=== PATIENT | female | born 1965 | race Hispanic/Latino ===

== ENCOUNTER 2018-12-13 20:08 | Emergency (ER) | payer BC ==
[~2018-12-13] VITALS: Ht 165.1 cm; Wt 95.3 kg
[2018-12-13] MEDS ORDERED: KETOROLAC TROMETHAMINE 60 MG/2 ML VIAL IM ONE (20:45)
[2018-12-13] MEDS ORDERED: LIDOCAINE 5% PATCH TP SCH (20:45)
[2018-12-13] MEDS ORDERED: ROBAXIN-750750 MG PO (20:51)
[2018-12-13] MEDS ORDERED: ULTRAM50 MG PO (20:51)
--- NOTE | 2018-12-13 20:51 | Diagnostic Imaging Report ---
EXAMINATION: CHEST 2 VIEWS INDICATION: ^CHEST WALL PAIN ^[id number] ^2024 ^Y COMPARISON: None FINDINGS: PA and lateral views TUBES and LINES: None. LUNGS: Minimal left basilar atelectasis. No interstitial thickening. Punctate calcified granuloma in the right lower lobe. Pulmonary vascular markings are normal. PLEURA: Blunting of the left lateral costophrenic angle. HEART AND MEDIASTINUM: The cardiomediastinal silhouette is unremarkable. BONES AND SOFT TISSUES: No displaced fractures. Mild degenerative changes of the spine. No focal osseous lesions. Soft tissues are unremarkable. UPPER ABDOMEN: No free air under the diaphragm. IMPRESSION: Left basilar atelectasis, possibly with small pleural effusion. Signed by: Dr. Dwight Ernst MD on 12/13/2018 8:48 PM
[2018-12-13] MEDS ORDERED: LIDOCAINE 5% PATCH TP ONE (20:53)
[2018-12-13] MEDS ORDERED: KETOROLAC TROMETHAMINE 60 MG/2 ML VIAL ONE (20:53)
[2018-12-13 21:41] LABS: BASOPHILS % 0.3 % (0.0-1.0); EOSINOPHILS % 0.1 % (0.0-6.0); HEMATOCRIT 37.3 % (34.2-44.1); HEMOGLOBIN 12.7 g/dL (12.0-16.0); LYMPHOCYTES # (AUTO) 0.7 (1.0-3.2); LYMPHOCYTES % 6.4 % (18.0-39.1); MONOCYTES # (AUTO) 0.7 (0.2-0.8); MONOCYTES % 6.4 % (4.4-11.3); NEUTROPHILS # (AUTO) 9.6 (2.1-6.9); NEUTROPHILS % 86.3 % (38.7-80.0); PLATELET COUNT 234 x10e3/uL (140-360); RED CELL DISTRIBUTION WIDTH 12.4 % (11.7-14.4)
[2018-12-13 21:56] LABS: ALANINE AMINOTRANSFERASE 11 IU/L (0-55); ALBUMIN 3.6 g/dL (3.5-5.0); ALBUMIN/GLOBULIN RATIO 1.2 (0.8-2.0); ALKALINE PHOSPHATASE 138 IU/L (40-150); BLOOD UREA NITROGEN 18 mg/dL (7-26); BUN/CREATININE RATIO 16 (6-25); CALCIUM 9.5 mg/dL (8.4-10.2); CARBON DIOXIDE 24 mmol/L (22-29); CHLORIDE 97 mmol/L (98-107); CREATINE KINASE 36 IU/L (29-168); CREATININE, SERUM 1.15 mg/dL (0.57-1.11); EST GLOMERULAR FILTRATION RATE 50 ML/MIN (60-); SODIUM 131 mmol/L (136-145)
[2018-12-13 22:28] LABS: GLUCOSE 698 mg/dL (74-118)
[2018-12-13] MEDS ORDERED: SODIUM CHLORIDE 0.9% 1000ML 1,000 ML ONE (22:33)
[2018-12-13] MEDS ORDERED: INSULIN REGULAR, HUMAN 100 UNIT/1 ML 3ML VIAL ONE (22:33)
[2018-12-13] MEDS ORDERED: INSULIN REGULAR, HUMAN 100 UNIT/1 ML 3ML VIAL SQ STA (22:38)
[2018-12-13] MEDS ORDERED: INSULIN REGULAR, HUMAN 100 UNIT/1 ML 3ML VIAL IV STA (22:38)
[2018-12-13] MEDS ORDERED: SODIUM CHLORIDE 0.9% 1000ML 1,000 ML IV STA (22:38)
--- NOTE | 2018-12-13 22:42 | NUR ---
PT REPORTS NOT TAKING METFORMIN ROUTINELY AND ATE 2 PIECES OF PIE TODAY. AWARE
[2018-12-13] MEDS ORDERED: IOPAMIDOL 370 MG/ML 200 ML INFUS..BTL INJ ONE (23:15)
[2018-12-13] MEDS ORDERED: SODIUM CHLORIDE 0.9% 50ML 50 ML ONE (23:15)
--- NOTE | 2018-12-14 00:11 | Diagnostic Imaging Report ---
CT chest pulmonary embolism protocol CPT code: 71393 INDICATION: Left chest wall pain ^PE PROTOCOL ^[id number] ^2315 ^Y TECHNIQUE: Thin collimation axial images obtained through the level of the pulmonary arteries with additional imaging through the chest following the uneventful administration of 100 cc of low osmolar, nonionic intravenous contrast. Images reconstructed into coronal and sagittal MIPs for complete evaluation of the tortuous and overlapping pulmonary vascular structures and to reduce patient radiation dose. RADIATION DOSE: Total DLP: 509.44 mGy*cm Estimated effective dose: (DLP x 0.015 x size factor) mSv CTDIvol has been reviewed. It is below the limits set by the Radiation Protocol Committee (RPC). Dose reduction techniques used: Automated exposure control, adjustment of the mAs and/or kVp according to patient size, standardized low-dose protocol, and/or iterative reconstruction technique. COMPARISON: Chest x-ray 12/13/2018. FINDINGS: Pulmonary artery: No filling defects are appreciated within the main, left, right, lobar or visualized segmental pulmonary arteries to suggest embolism. Aorta: The thoracic aorta is not aneurysmal. No evidence for dissection. Lymph nodes: No enlarged axillary, supra clavicular, mediastinal, or hilar lymph nodes. Thyroid: Normal in size without mass in the visualized parenchyma.. Mediastinum: The heart is normal in size. Trace amount of fluid in the superior pericardial recess. The esophagus is normal. Lungs: Right Lung: Groundglass nodule in the anterolateral upper lobe measures 4 mm. There is mild lower lobe atelectasis. Left Lung: Focal airspace opacity in the posterior upper lobe abutting the major fissure. Patchy airspace opacities in the lingula and lower lobe. \ Pleura: Trace left pleural effusion. No right pleural effusion. No pleural based mass. Abdomen: Visualized portions are straight no abnormality. Bones: Degenerative changes of the spine. No focal osseous lesions. IMPRESSION: 1. No evidence of pulmonary embolus or aortic dissection. 2. Airspace opacities in the left lung are suggestive of infiltrates with associated atelectasis. Small left pleural effusion. 3. Trace right lower lobe atelectasis. Signed by: Dr. Dwight Ernst MD on 12/14/2018 12:08 AM
[2018-12-14 00:36] VITALS: BP 133/85
== END 2018-12-14 01:06 | disposition home or self-care (01) ==
LOC: ER 20:08
DX: R06.09 Other forms of dyspnea (principal); R09.1 Pleurisy; J90 Pleural effusion, not elsewhere classified
CPT/HCPCS: 36415; 71046; 71260; 80053; 82550; 82553; 82948; 83880; 84484; 84702; 85025; 93005; 99284; J1817; J1885; J7030; Q9967

== ENCOUNTER 2019-03-30 09:58 | Emergency (ER) | payer BC ==
[~2019-03-30] VITALS: Ht 165.1 cm; Wt 93.0 kg
[~2019-03-30 09:58] MED LIST: ROBAXIN-750750 MG PO; ULTRAM50 MG PO
--- OUTSIDE RECORDS SUMMARY | 2019-03-30 10:00 | XMS REPORT | Encounter Summary ---
Author Organization Unknown Address [address] [place] [id number] Phone [phone] Care Team Providers Care Powder Truck Driver Name Role Phone Dr. Mendez Wolf 3 [phone] Mendez Mathis MD 3 [phone] Justen Grimes OD 111 [phone] Reason for Visit Bilateral leg problem; other - see typed reason Instructions 1. Type II diabetes mellitus uncontrolled type 2 diabetes: care instructions Levemir FlexTouch U-100 Insulin 100 unit/mL (3 mL) subcutaneous pen HbA1c (hemoglobin A1c), blood microalbumin:creatinine ratio, urine 2. Hyperlipidemia high cholesterol: care instructions atorvastatin 40 mg tablet CMP, serum or plasma lipid panel, serum 3. Low back pain methocarbamol 750 mg tablet meloxicam 15 mg tablet ketorolac 60 mg/2 mL intramuscular solution 4. Body mass index 30+ - obesity body mass index: care instructions learning about healthy weight 5. Obesity starting a weight loss plan: care instructions dash diet: care instructions start aerobic exercise Discussion Note: None recorded. Plan of Care Reminders Provider Appointments Est Patient 01/11/2019 11:15AM Mendez Jasmine MD Lab CMP, Serum or Plasma 12/28/2018 [facility] Lipid Panel, Serum 12/28/2018 [facility] HbA1C (Hemoglobin a1C), Blood 12/28/2018 [facility] Microalbumin:creatinine Ratio, Urine 12/28/2018 [facility] Referral None recorded. Procedures None recorded. Surgeries None recorded. Imaging None recorded. Medications Name Start Date atorvastatin 40 mg tablet Take 1 tablet every day by oral route as directed for 90 days. BD Ultra-Fine Short Pen Needle 31 gauge x 5/16" use once daily bupropion HCl SR 150 mg tablet,12 hr sustained-release Take 1 tablet every day by oral route as directed. ketorolac 60 mg/2 mL intramuscular solution Inject 2 mL as needed by intramuscular route. Levemir FlexTouch U-100 Insulin 100 unit/mL (3 mL) subcutaneous pen Inject 50 units every day by subcutaneous route as directed for 30 days. meloxicam 15 mg tablet TAKE ONE TABLET BY MOUTH ONCE A DAY NEEDED WITH FOOD methocarbamol 750 mg tablet Take 1 tablet every 6-8 hours by oral route as needed for 14 days. mupirocin 2 % topical ointment 12/28/2018 tramadol 50 mg tablet Medications Administered Name Date ketorolac 60 mg/2 mL intramuscular solution Inject 2 mL as needed by intramuscular route. [id number]:10:00 Vitals Height Weight BMI Blood Pressure 5 ft 5 in 197.6 lbs 32.9 kg/m2 130/84 mm[Hg] Lab Results Date Name Specimen Result Interpretation Description Value Range Status Address 12/14/2018 Lab No observation recorded. [facility]: [address] [facility] Allergies Code Code System Name Reaction Severity Status Onset Penicillins Eye Swelling Mild to Moderate Active Problems Name Status Onset Date Source Diabetes Mellitus Active 06/03/2016 Hyperlipidemia Active 06/03/2016 Depressive Disorder Active 07/01/2016 Mixed Anxiety and Depressive Disorder Active 01/07/2017 Shoulder Joint Pain Active 01/07/2017 Procedures Date Name Performed by 06/12/2017 Other Information not available Vaccine List Vaccine Type Tdap 0.5 mL Social History Smoking Status Never Smoker Past Encounters 12/28/2018 Type II Diabetes Mellitus Uncontrolled; Hyperlipidemia; Low Back Pain; Body Mass Index 30+ - Obesity; Obesity Mendez Jasmine MD: [address] [place] [address], Ph. 12/14/2018 Chest Pain; Radiology Result Abnormal; Pleural Effusion; Diabetes Mellitus; Body Mass Index 30+ - Obesity; Morbid Obesity; Depressive Disorder; Immunization Refused; Screening for Malignant Neoplasm of Colon Mendez Jasmine MD: [address] [place] [address], Ph. History of Present Illness Note:F/u on dm: pt re-started using levemir. Glucose readings at home 189-400s 2 hrs postprandial. Not taking steglatro since a few months ago.<div>F/u on chest pain: resolved.</div><div>Low back pain since 2-3 weeks ago. Constant, sharp type.</div> Review of Systems Comprehensive General Adult ROS Reported By: Patient Constitutional: Constitutional: no fever Eyes: Eyes: no vision change ENMT: Ears: no ear pain. Nose: no sinus problems. Mouth/Throat: no sore throat Cardiovascular: Cardiovascular: no shortness of breath when walking, no shortness of breath when lying down, no palpitations, no lightheadedness; chest pain Respiratory: Respiratory: no cough, no wheezing, no shortness of breath Gastrointestinal: Gastrointestinal: no abdominal pain, no nausea, no vomiting, no constipation, no diarrhea Musculoskeletal: Musculoskeletal: back pain Integumentary: Skin: no rashes Neurologic: Neurologic: no loss of consciousness, no headaches Psychiatric: Psych: no depression, no alcohol abuse, no anxiety, no suicidal thoughts Endocrine: Endocrine: no fatigue Physical Exam General Adult Exam (male) Reported By: Patient Constitutional: General Appearance: healthy-appearing, obese. Level of Distress: NAD. Ambulation: ambulating normally Psychiatric: Insight: good judgement. Mental Status: active and alert, normal mood, normal affect. Orientation: to time, to place, to person. Memory: recent memory normal, remote memory normal Eyes: Lids and Conjunctivae: non-injected, no discharge. EOM: EOMI ENMT: Ears: TMs clear. Nose: no sinus tenderness. Lips, Teeth, and Gums: no mouth or lip ulcers. Oropharynx: moist mucous membranes Neck: Neck: supple, trachea midline. Thyroid: no enlargement, non-tender Lungs: Respiratory effort: no dyspnea. Percussion: ; tenderness with palpation in the left side of the chest. Auscultation: breath sounds normal Cardiovascular: Heart Auscultation: RRR, normal S1, normal S2, no murmurs. Neck vessels: no carotid bruits Abdomen: Inspection and Palpation: soft, non-distended, no tenderness, no guarding Musculoskeletal:: Motor Strength and Tone: normal, normal tone. Joints, Bones, and Muscles: normal movement of all extremities. Extremities: no edema Neurologic: Gait and Station: normal gait. Cranial Nerves: grossly intact. Coordination and Cerebellum: no tremor Back: Thoracolumbar Appearance: ; tenderness with palpation in the lumbar area. Normal ROM. Negative straight leg raising test bilaterally
--- OUTSIDE RECORDS SUMMARY | 2019-03-30 10:00 | XMS REPORT ---
Author Organization Unknown Address [address] [place] [address] Phone [phone] Care Team Providers Care Numerical Analysis Group Manager Name Role Phone Noah Mayberry Unavailable Unavailable Allergies Code Code System Name Reaction Severity Status Onset Penicillins Eye Swelling Mild to Moderate Active Medications Name Status Start Date Stop Date aspirin 81 mg tablet,delayed release Active Not available atorvastatin 40 mg tablet Active Not available azithromycin 250 mg tablet Completed 01/06/2017 Bactrim DS 800 mg-160 mg tablet Take 1 tablet every 12 hours by oral route for 10 days. Active Not available benzonatate 200 mg capsule Active Not available ovejiiamrwabobp-pcgsxrtjchbjrsx-PQ 2 mg-30 mg-10 mg/5 mL syrup Completed 07/01/2016 bupropion HCl SR 150 mg tablet,12 hr sustained-release Active Not available bupropion HCl XL 300 mg 24 hr tablet, extended release TAKE ONE TABLET BY MOUTH ONCE A DAY Completed 07/06/2016 ceftriaxone 1 gram solution for injection Take 1 g by injection route. Active Not available ceftriaxone 500 mg solution for injection Take 500 mg by injection route. Completed 02/03/2017 Cheratussin AC 10 mg-100 mg/5 mL oral liquid Take 10 mL every 6-8 hours by oral route. Completed 08/29/2017 clindamycin HCl 150 mg capsule Completed 02/01/2016 clindamycin HCl 300 mg capsule Completed 07/05/2017 dexamethasone 4 mg/mL injection solution Take 2 mL by injection route. Completed 08/29/2017 fluconazole 150 mg tablet Completed 06/03/2016 fluticasone 50 mcg/actuation nasal spray,suspension Active Not available glyburide 5 mg-metformin 500 mg tablet Active Not available Hydromet 5 mg-1.5 mg/5 mL syrup Completed 02/01/2016 Invokana 300 mg tablet TAKE 1 TABLET BY MOUTH DAILY Completed 07/10/2017 levocetirizine 5 mg tablet Active Not available levofloxacin 500 mg tablet Active Not available levofloxacin 750 mg tablet Active Not available Lincocin 300 mg/mL injection solution Take 1 mL by injection route. Completed 01/06/2017 meloxicam 15 mg tablet Active Not available methylprednisolone 4 mg tablets in a dose pack Completed 08/29/2017 metronidazole 500 mg tablet Active Not available mupirocin 2 % topical ointment Completed 02/03/2017 naproxen 500 mg tablet Completed 01/06/2017 ProAir HFA 90 mcg/actuation aerosol inhaler Active Not available simvastatin 40 mg tablet TAKE 1 TABLET BY MOUTH EVERY DAY Completed 06/14/2017 tramadol 50 mg tablet Take 1 tablet 3 times a day by oral route as needed. Active Not available Problems Name Status Onset Date Source Diabetes Mellitus Active 06/03/2016 Hyperlipidemia Active 06/03/2016 Depressive Disorder Active 07/01/2016 Mixed Anxiety and Depressive Disorder Active 01/07/2017 Shoulder Joint Pain Active 01/07/2017 Procedures Date Name Performed by 08/15/2016 MAMMO, Screening, Digital, Bilateral [facility] [place] [address] [place] [address] (Work Place) Notes: Patient indicated no previous surgeries on (08/29/2017) Lab Results Date Name Specimen Result Interpretation Description Value Range Status Address 01/06/2017 CMP, Serum or Plasma Alt 17 U/L 0-55 U/L Final [facility]: [address] Ast 12 U/L 5-34 U/L Final [facility]: [address] Bun 8.9 mg/dL 7.0-18.7 mg/dL Final [facility]: [address] Alk Phos 88 unit/L 40-150 unit/L Final [facility]: [address] High Glucose 331 mg/dL 70-99 mg/dL Final [facility]: [address] Albumin 3.7 g/dL 3.5-5.0 g/dL Final [facility]: [address] Creatinine 0.68 mg/dL 0.57-1.11 mg/dL Final [facility]: [address] eGFR Non- >60 mL/min/1.73m2 >60 mL/min/1.73m2 Final [facility]: [address], [place] Total Bilirubin 0.4 mg/dL 0.2-1.2 mg/dL Final [facility]: [address], [place] eGFR - >60 mL/min/1.73m2 >60 mL/min/1.73m2 Final [facility]: [address], [place] Sodium 138 mEq/L 136-145 mEq/L Final [facility]: [address] [place] [address], [place] Potassium 4.1 mEq/L 3.5-5.1 mEq/L Final [facility]: [address] [place] [address], [place] Chloride 103 mmol/L 98-107 mmol/L Final [facility]: [address], [place] Total Protein 6.7 g/dL 6.4-8.3 g/dL Final [facility]: [address] [facility] Calcium 9.6 mg/dL 8.4-10.2 mg/dL Final [facility]: [address], [place] Co2 27.5 mmol/L 22.0-29.0 mmol/L Final [facility]: [address] Anion Gap 8 calc Final [facility]: [address], [place] 01/06/2017 Lipid Panel, Serum Low Hdl 32 mg/dL 40-60 mg/dL Final [facility]: [address] High Triglyceride 174 mg/dL 0-149 mg/dL Final [facility]: [address] VLDL Calc. 35 mg/dL Final [facility]: [address] cholesterol/HDL Ratio 9 mg/dL Final [facility]: [address] [facility] High non-HDL Cholesterol Calc. 249 mg/dL 0-160 mg/dL Final [facility]: [address] High Cholesterol 281 mg/dL 0-199 mg/dL Final [facility]: [address] High LDL Calc. 214 mg/dL 0-130 mg/dL Final [facility]: [address] [place] [address] 01/06/2017 HbA1C (Hemoglobin a1C), Blood High A1C W/eag 14.1 % 1.0- 5.7 % Final [facility]: [address] Average Blood Glucose 358 mg/dL Final [facility]: [address] 08/15/2016 CMP, Serum or Plasma Alt 12 U/L 0-55 U/L Final [facility]: [address] Ast 13 U/L 5-34 U/L Final [facility]: [address] Bun 12 mg/dL 7-20 mg/dL Final [facility]: [address] Alk Phos 71 unit/L 40-150 unit/L Final [facility]: [address] High Glucose 121 mg/dL 70-99 mg/dL Final [facility]: [address] Albumin 4.0 g/dL 3.5-5.0 g/dL Final [facility]: [address] Creatinine 0.63 mg/dL 0.57-1.11 mg/dL Final [facility]: [address] eGFR Non- >60 mL/min/1.73m2 >60 mL/min/1.73m2 Final [facility]: [address] Total Bilirubin 0.4 mg/dL 0.2-1.2 mg/dL Final [facility]: [address] eGFR - >60 mL/min/1.73m2 >60 mL/min/1.73m2 Final [facility]: [address] Sodium 140 mEq/L 137-144 mEq/L Final [facility]: [address] Potassium 4.8 mEq/L 3.5-5.0 mEq/L Final [facility]: [address] Chloride 109 mmol/L 101-110 mmol/L Final [facility]: [address] Total Protein 6.7 g/dL 6.4-8.3 g/dL Final [facility]: [address] Calcium 9.3 mg/dL 8.4-10.2 mg/dL Final [facility]: [address] Co2 23.6 mmol/L 21.0-29.0 mmol/L Final [facility]: [address] Anion Gap 7 calc Final [facility]: [address] 08/15/2016 Lipid Panel, Serum Low Hdl 36 mg/dL 40-60 mg/dL Final [facility]: [address] Triglyceride 118 mg/dL 0-149 mg/dL Final [facility]: [address] VLDL Calc. 24 mg/dL Final [facility]: [address] cholesterol/HDL Ratio 6 mg/dL Final [facility]: [address] High non-HDL Cholesterol Calc. 177 mg/dL 0-160 mg/dL Final [facility]: [address] High Cholesterol 213 mg/dL 0-199 mg/dL Final [facility]: [address] High LDL Calc. 153 mg/dL 0-130 mg/dL Final [facility]: [address] 08/15/2016 HbA1C (Hemoglobin a1C), Blood High A1C W/eag 8.9 % 1.0-5.7 % Final [facility]: [address] Average Blood Glucose 209 mg/dL Final [facility]: [address] 07/01/2016 CBC W/ Auto Diff Wbc 5.7 x10*3/L 2.6-11.2 x10*3/L Final [facility]: [address] Rbc 4.73 10*12/L 3.93-5.87 10*12/L Final [facility]: [address] Hemoglobin 14.5 g/dL 10.7-15.7 g/dL Final [facility]: [address] Hematocrit 44.4 % 33.2-46.8 % Final [facility]: [address] [place] Mcv 93.9 fL 77.8-103.4 fL Final [facility]: [address] [place] Mch 30.7 pg 24.8-35.0 pg Final [facility]: [address] [place] Mchc 32.7 g/dL 31.5-35.9 g/dL Final [facility]: [address] [place] RDW-SD 42.3 fL 35.8-50.4 fL Final [facility]: [address] [place] Platelet Count 271.0 k/uL 126.7-416.1 k/uL Final [facility]: [address] [place] Mpv 10.5 fL 8.3-13.5 fL Final [facility]: [address] [place] Neut% 59.5 % 39.5-76.9 % Final [facility]: [address] [place] Lymph% 32.0 % 12.6-45.8 % Final [facility]: [address] [place] Mon% 7.2 % 3.7-12.9 % Final [facility]: [address] [place] Eos% 0.9 % 0.7-6.4 % Final [facility]: [address] [place] Baso% 0.4 % 0.1-1.5 % Final [facility]: [address] [place] Neut# 3.4 x10*3/L 0.6-7.6 x10*3/L Final [facility]: [address] [place] Lymph# 1.8 x10*3/L 0.7-3.3 x10*3/L Final [facility]: [address] [place] Mon# 0.4 x10*3/L 0.2-1.0 x10*3/L Final [facility]: [address] [place] Eos# 0.05 x10*3/L 0.04-0.44 x10*3/L Final [facility]: [address] Baso# 0.02 x10*3/L 0.01-0.08 x10*3/L Final [facility] [address] [facility] 07/01/2016 CMP, Serum or Plasma Alt 20 U/L 0-55 U/L Final [facility]: [address] Ast 17 U/L 5-34 U/L Final [facility]: [address] Bun 14 mg/dL 7-20 mg/dL Final [facility]: [address] Alk Phos 84 unit/L 40-150 unit/L Final [facility]: [address] High Glucose 118 mg/dL 70-99 mg/dL Final [facility]: [address] Albumin 4.1 g/dL 3.5-5.0 g/dL Final [facility]: [address] Creatinine 0.69 mg/dL 0.57-1.11 mg/dL Final [facility]: [address] eGFR Non- >60 mL/min/1.73m2 >60 mL/min/1.73m2 Final [facility]: [address] Total Bilirubin 0.5 mg/dL 0.2-1.2 mg/dL Final [facility]: [address] eGFR - >60 mL/min/1.73m2 >60 mL/min/1.73m2 Final [facility]: [address] Sodium 142 mEq/L 137-144 mEq/L Final [facility]: [address] Potassium 4.7 mEq/L 3.5-5.0 mEq/L Final [facility]: [address] Chloride 108 mmol/L 101-110 mmol/L Final [facility]: [address] Total Protein 6.8 g/dL 6.4-8.3 g/dL Final [facility]: [address] [address], [place] Calcium 9.7 mg/dL 8.4-10.2 mg/dL Final [facility]: [address] [place] [address], [place] Co2 23 mmol/L 21-29 mmol/L Final [facility]: [address] [place] [address], [place] Anion Gap 11 calc Final [facility]: [address] [place] [address], [place] 07/01/2016 Lipid Panel, Serum Low Hdl 32 mg/dL 40-60 mg/dL Final [facility]: [address] [place] [address], [place] High Triglyceride 158 mg/dL 0-149 mg/dL Final [facility]: [address] [place] [address], [place] VLDL Calc. 32 mg/dL Final [facility]: [address] cholesterol/HDL Ratio 6 mg/dL Final [facility]: [address] non-HDL Cholesterol Calc. 146 mg/dL 0-160 mg/dL Final [facility]: [address] Cholesterol 178 mg/dL 0-199 mg/dL Final [facility]: [address] [place] [address], [place] LDL Calc. 114 mg/dL 0-130 mg/dL Final [facility]: [address] [place] [address], [place] 07/01/2016 HbA1C (Hemoglobin a1C), Blood High A1C W/eag 10.8 % 1.0- 5.7 % Final [facility]: [address] Average Blood Glucose 263 mg/dL Final [facility]: [address] [place] [address], [place] 10/29/2015 CMP, Serum or Plasma No observation recorded. [facility]: [address], [place] 08/20/2015 CBC W/ Auto Diff No observation recorded. [facility]: [address], [place] Albumin:creatinine Ratio, Urine No observation recorded. [facility]: [address] [place] [address] Albumin:creatinine Ratio, Urine Type Urine Microlalbumin 10 mg/L [facility] [address], [place] Type Urine Creatinine 100 mg/dL [facility]: [address] [facility] [address], [place] Type A:C Ratio <30 mg/g (Normal) [facility]: [address] Past Encounters 08/29/2017 Cellulitis and Abscess of Face; Diabetes Mellitus; Hyperlipidemia Christina Hayes MD: [address], [address] [address], Ph. 07/10/2017 Acute Bronchitis Noah Mayberry MD: [facility] [place] [address], Ph. 07/05/2017 Acute Sinusitis; Renewal of Prescription Mendez Jasmine MD: [address] [place] [phone], Ph. 06/14/2017 Body Mass Index 30+ - Obesity; Gingival Abscess Noah Mayberry MD: [address] [place] [phone], Ph. 02/03/2017 Diabetes Mellitus; Hyperlipidemia; Body Mass Index 30+ - Obesity; Depressive Disorder; Shoulder Joint Pain Xenia Nielsen MD: [address] [place] [phone], Ph. 01/06/2017 Diabetes Mellitus; Hyperlipidemia; Body Mass Index 30+ - Obesity; Paronychia of Finger; Mixed Anxiety and Depressive Disorder Xenia Nielsen MD: [address] [place] [phone], Ph. 09/29/2016 Acute Bronchitis; Acute Sinusitis; Acute Pharyngitis Noah Mayberry MD: [address] [place] [phone], Ph. 08/15/2016 Hyperlipidemia; Diabetes Mellitus; Shoulder Joint Pain; Pain in Left Foot; Mixed Anxiety and Depressive Disorder; Screening for Malignant Neoplasm of Breast Xenia Nielsen MD: [address] [address], Ph. 07/01/2016 Shoulder Joint Pain; Pain in Left Foot; Diabetes Mellitus; Hyperlipidemia; Mixed Anxiety and Depressive Disorder Xenia Nielsen MD: [address], [facility] [address] [address], Ph. 06/03/2016 Acute Sinusitis Xenia Nielsen MD: [address], [facility] [address] [address], Ph. 02/18/2016 Shoulder Pain; Pain in Elbow; Type 2 Diabetes Mellitus without Complication Noah Mayberry MD: [address] [place] [address], Ph. 02/01/2016 Shoulder Strain; Strain of Muscle And/or Tendon of Elbow Region; Contusion of Knee; Candidiasis of Vagina Noah Mayberry MD: [address] [place] [address], Ph. Social History Smoking Status Never Smoker Vaccine List Notes: NONE 07/10/17 KG Plan of Care Patient Instructions rx bactrim Rocephin injection today rx tramadol up to 3x daily pain rec warm compress refer to DERM, rec eval for incision/drainage if not improving within 48 hrs on prescribed meds, f/u dentist Reminders Provider Appointments None recorded. Lab None recorded. Referral None recorded. Procedures None recorded. Surgeries None recorded. Imaging None recorded. Vitals 08/29/2017 11:30AM Est Patient Height Weight BMI Blood Pressure 5 ft 5.5 in 209.4 lbs 34.3 kg/m2 140/92 mm[Hg] 07/10/2017 02:00PM Est Patient Height Weight Blood Pressure 5 ft 5.5 in 124/72 mm[Hg] 07/05/2017 03:30PM Urgent Care Visit Height Weight BMI Blood Pressure 5 ft 5.5 in 215 lbs 35.2 kg/m2 138/74 mm[Hg] 06/14/2017 01:30PM Est Patient Height Weight BMI Blood Pressure 5 ft 5.5 in 225 lbs 36.9 kg/m2 120/84 mm[Hg] 02/03/2017 09:45AM Est Patient Height Weight BMI Blood Pressure 5 ft 5.5 in 224 lbs 36.7 kg/m2 110/88 mm[Hg] 01/06/2017 11:00AM Est Patient Height Weight BMI Blood Pressure 5 ft 5.5 in 227 lbs 37.2 kg/m2 (1) 150/82 mm[Hg] (2) 154/96 mm[Hg] 09/29/2016 02:15PM Est Patient Height Weight BMI Blood Pressure 5 ft 5.5 in 233 lbs 38.2 kg/m2 132/89 mm[Hg] 08/15/2016 09:45AM Est Patient Height Weight BMI Blood Pressure 5 ft 5.5 in 229 lbs 37.5 kg/m2 126/82 mm[Hg] 07/01/2016 10:30AM Est Patient Height Weight BMI Blood Pressure 5 ft 5.5 in 222.6 lbs 36.5 kg/m2 115/70 mm[Hg] 06/03/2016 09:30AM Est Patient Height Weight BMI Blood Pressure 5 ft 5.5 in 220 lbs 36.1 kg/m2 126/86 mm[Hg] 02/18/2016 01:45PM Est Patient Height Weight BMI Blood Pressure 5 ft 5.5 in 228 lbs 37.4 kg/m2 142/91 mm[Hg] 02/01/2016 04:30PM Est Patient Height Weight BMI Blood Pressure 5 ft 5.5 in 231 lbs 37.9 kg/m2 128/80 mm[Hg]
--- OUTSIDE RECORDS SUMMARY | 2019-03-30 10:00 | XMS REPORT ---
Author [facility] Address Unknown Phone Unavailable Care Team Providers Care Color Consultant Name Role Phone Michelle VELASQUEZ Unavailable Unavailable Problems This patient has no known problems. Allergies, Adverse Reactions, Alerts This patient has no known allergies or adverse reactions. Medications This patient has no known medications. Results Test Description Test Time Test Comments Text Results Atomic Results Result Comments CT CHEST W 2018-12-14 00:03:00 [place] [address] Patient Name: MINERVA CHASE MR #: [id number] : 1965 Age/Sex: 53/F Req #: [id number] [facility] Physician: Ordered by: PIYUSH VELASQUEZ MD Report #: [id number] Location: ER Room/Bed: Procedure: [id number] CT/CT CHEST W Exam Date: 12/13/18 Exam Time: 2314 REPORT STATUS: Signed CT chest pulmonary embolism protocol CPT code: 53516 INDICATION: Left chest wall pain PE PROTOCOL [id number] Y TECHNIQUE: Thin collimation axial images obtained through the level of the pulmonary arteries with additional imaging through the chest following the uneventful administration of 100 cc of low osmolar, nonionic intravenous contrast. Images reconstructed into coronal and sagittal MIPs for complete evaluation of the tortuous and overlapping pulmonary vascular structures and to reduce patient radiation dose. RADIATION DOSE: Total DLP: 509.44 mGy*cm Estimated effective dose: (DLP x 0.015 x size factor) mSv CTDIvol has been reviewed. It is below the limits set by the Radiation Protocol Committee (RPC). Dose reduction techniques used: Automated exposure control, adjustment of the mAs and/or kVp according to patient size, standardized low-dose protocol, and/or iterative reconstruction technique. COMPARISON: Chest x-ray 12/13/2018. FINDINGS: Pulmonary artery: No filling defects are appreciated within the main, left, right, lobar or visualized segmental pulmonary arteries to suggest embolism. Aorta: The thoracic aorta is not aneurysmal. No evidence for dissection. Lymph nodes: No enlarged axillary, supra clavicular, mediastinal, or hilar lymph nodes. Thyroid: Normal in size without mass in the visualized parenchyma.. Mediastinum: The heart is normal in size. Trace amount of fluid in the superior pericardial recess. The esophagus is normal. Lungs: Right Lung: Groundglass nodule in the anterolateral upper lobe measures 4 mm. There is mild lower lobe atelectasis. Left Lung: Focal airspace opacity in the posterior upper lobe abutting the major fissure. Patchy airspace opacities in the lingula and lower lobe. Pleura: Trace left pleural effusion. No right pleural effusion. No pleural based mass. Abdomen: Visualized portions are straight no abnormality. Bones: Degenerative changes of the spine. No focal osseous lesions. IMPRESSION: 1. No evidence of pulmonary embolus or aortic dissection. 2. Airspace opacities in the left lung are suggestive of infiltrates with associated atelectasis. Small left pleural effusion. 3. Trace right lower lobe atelectasis. Signed by: Dr. Tammi Ernst MD on 12/14/2018 12:08 AM Dictated By: TAMMI ERNST MD Transcribed By: KEELY on 12/14/187 COPY TO: PIYUSH VELASQUEZ MD CHEST 2 VIEWS 2018-12-13 20:47:00 [place] [address] Patient Name: MINERVA CHASE MR #: [id number] : 1965 Age/Sex: 53/F Req #: [id number] [facility] Physician: Ordered by: PIYUSH VELASQUEZ MD Report #: [id number] Location: ER Room/Bed: Procedure: [id number] DX/CHEST 2 VIEWS Exam Date: 12/13/18 Exam Time: 2024 REPORT STATUS: Signed EXAMINATION: CHEST 2 VIEWS INDICATION: CHEST WALL PAIN [id number] Y COMPARISON: None FINDINGS: PA and lateral views TUBES and LINES: None. LUNGS: Minimal left basilar atelectasis. No interstitial thickening. Punctate calcified granuloma in the right lower lobe. Pulmonary vascular markings are normal. PLEURA: Blunting of the left lateral costophrenic angle. HEART AND MEDIASTINUM: The cardiomediastinal silhouette is unremarkable. BONES AND SOFT TISSUES: No displaced fractures. Mild degenerative changes of the spine. No focal osseous lesions. Soft tissues are unremarkable. UPPER ABDOMEN: No free air under the diaphragm. IMPRESSION: Left basilar atelectasis, possibly with small pleural effusion. Signed by: Dr. Tammi Ernst MD on 12/13/2018 8:48 PM Dictated By: TAMMI ERNST MD 47 Transcribed By: KEELY on 12/13/182047 COPY TO: PIYUSH VELASQUEZ MD
--- OUTSIDE RECORDS SUMMARY | 2019-03-30 10:00 | XMS REPORT | Encounter Summary ---
Author Organization Unknown Address [address] [place] [address] Phone [phone] Care Team Providers Care Mechanical System Technician Name Role Phone Dr. Mendez Wolf 3 [phone] Mendez Mathis MD 3 [phone] Reason for Visit Hyperlipidemia; Diabetes mellitus; Mixed anxiety and depressive disorder; diabetic foot exam Instructions 1. Chest pain 2. Radiology result abnormal Zithromax Z-Mata 250 mg tablet 3. Pleural effusion head of music referral - Please call patient and schedule her an appointment. 4. Diabetes mellitus Steglatro 15 mg tablet Levemir FlexTouch U-100 Insulin 100 unit/mL (3 mL) subcutaneous pen 5. Body mass index 30+ - obesity body mass index: care instructions learning about healthy weight 6. Morbid obesity starting a weight loss plan: care instructions dash diet: care instructions body mass index: care instructions start aerobic exercise 7. Depressive disorder bupropion HCl SR 150 mg tablet,12 hr sustained-release 8. Immunization refused Adacel (Tdap Adolesn/Adult)(PF)2 Lf-(2.5-5-3-5)-5 Lf/0.5 mL IM syringe 9. Screening for malignant neoplasm of colon fecal occult blood, stool Discussion Note: None recorded. Plan of Care Reminders Provider Appointments Est Patient 12/28/2018 10:00AM Mendez Jasmine MD Lab Fecal Occult Blood, Stool 12/14/2018 [facility] Laboratory Referral Vehicle Delivery Worker Referral 12/14/2018 Keo Sauer MD Procedures None recorded. Surgeries None recorded. Imaging None recorded. Medications Name Start Date aspirin 81 mg tablet,delayed release Take 1 tablet every day by oral route. atorvastatin 40 mg tablet TAKE 1 TABLET BY MOUTH EVERY DAY AT BEDTIME (CALL FOR APPOINTMENT) BD Ultra-Fine Short Pen Needle 31 gauge x 5/16" bupropion HCl SR 150 mg tablet,12 hr sustained-release Take 1 tablet every day by oral route as directed. Levemir FlexTouch U-100 Insulin 100 unit/mL (3 mL) subcutaneous pen Inject 20 units every day by subcutaneous route for 30 days. mupirocin 2 % topical ointment Steglatro 15 mg tablet TAKE 1 TABLET BY MOUTH EVERY DAY tramadol 50 mg tablet Zithromax Z-Mata 250 mg tablet TAKE 2 TABLETS (500 MG) BY ORAL ROUTE ONCE DAILY FOR 1 DAY THEN 1 TABLET (250 MG) BY ORAL ROUTE ONCE DAILY FOR 4 DAYS Medications Administered None recorded. Vitals Height Weight BMI Blood Pressure 5 ft 5 in 211 lbs 35.1 kg/m2 140/78 mm[Hg] Lab Results None recorded. Allergies Code Code System Name Reaction Severity [...] History Smoking Status Never Smoker Past Encounters 12/14/2018 Chest Pain; Radiology Result Abnormal; Pleural Effusion; Diabetes Mellitus; Body Mass Index 30+ - Obesity; Morbid Obesity; Depressive Disorder; Immunization Refused; Screening for Malignant Neoplasm of Colon Mendez Jasmine MD: [address] [place] [address], Ph. History of Present Illness Note:Coming for f/u. Pt went to the ER yesterday due to acute onset pain in the left side of the chest. CT of the chest showed no evidence of pulmonary embolus or aortic dissection. It showed opacities in the left lung suggestive of infiltrates with atelectasis and small left pleural effusion.<div>Pain is very intense today 03/21. </div> Review of Systems Comprehensive General Adult ROS [...] nausea, no vomiting, no constipation, no diarrhea Integumentary: Skin: no rashes Neurologic: Neurologic: no loss of consciousness, no headaches Psychiatric: Psych: no depression, no alcohol abuse, no anxiety, no suicidal thoughts Endocrine: Endocrine: no fatigue Physical Exam General Adult Exam (male) Reported By: Patient Constitutional: General Appearance: healthy-appearing, obese. Level of Distress: moderate distress. Ambulation: ambulating normally Psychiatric: Insight: good judgement. [...] grossly intact. Coordination and Cerebellum: no tremor Skin: Inspection and palpation: no rash, no lesions
--- OUTSIDE RECORDS SUMMARY | 2019-03-30 10:01 | XMS REPORT | Encounter Summary ---
Author Organization Unknown Address [address] [place] [address] Phone [phone] Care Team Providers Care Retail Parts Professional Name Role Phone Dr. Mendez Wolf 3 [phone] Mendez Mathis MD 3 [phone] Justen Evert OD 111 [phone] Reason for Visit other - see typed reason; skin problem/rash Instructions 1. Pruritic rash triamcinolone acetonide 0.5 % topical ointment 2. Cough Tessalon Perles 100 mg capsule 3. Benign essential hypertension 4. Type II diabetes mellitus uncontrolled type 2 diabetes: care instructions blood glucose test strips lancets Discussion Note: None recorded. Plan of Care Reminders Provider Appointments Est Patient 03/29/2019 10:00AM Mendez Jasmine MD Lab None recorded. Referral None recorded. Procedures None recorded. Surgeries None recorded. Imaging None recorded. Medications Name Start Date atorvastatin 40 mg tablet Take 1 tablet every day by oral route as directed for 90 days. BD Ultra-Fine Short Pen Needle 31 gauge x 5/16" use once daily cetirizine 10 mg tablet Take 1 tablet every day by oral route as needed for 30 days. fluticasone propionate 50 mcg/actuation nasal spray,suspension [place] 1 spray twice a day by intranasal route as directed for 14 days. Levemir FlexTouch U-100 Insulin 100 unit/mL (3 mL) subcutaneous pen INJECT 50 UNITS UNDER THE SKIN EVERY DAY DIRECTED losartan 25 mg tablet Take 1 tablet every day by oral route as directed for 30 days. meloxicam 15 mg tablet TAKE ONE TABLET BY MOUTH ONCE A DAY NEEDED WITH FOOD methocarbamol 750 mg tablet Take 1 tablet every 6-8 hours by oral route as needed for 14 days. Tessalon Perles 100 mg capsule Take 1 capsule 3 times a day by oral route as needed for 10 days. triamcinolone acetonide 0.5 % topical ointment APPLY A THIN LAYER TO THE AFFECTED AREA(S) BY TOPICAL ROUTE 2 TIMES PER DAY FOR UP TO 2 WEEKS Medications Administered None recorded. Vitals Height Weight BMI Blood Pressure 5 ft 5 in 205 lbs 34.1 kg/m2 (1) 170/98 mm[Hg] (2) 162/82 mm[Hg] Lab Results Date Name Specimen Result Interpretation Description Value Range Status Address 12/28/2018 CMP, Serum or Plasma Alt 13 U/L 0-55 U/L Final [facility] Laboratory: [address] [place] [address], [place] Ast 10 U/L 5-34 U/L Final [facility]: [address] Low Bun 6.9 mg/dL 9.8-25.0 mg/dL Final [facility] Laboratory: [address] [place] [address], [place] Alk Phos 109 unit/L 40-150 unit/L Final [facility] Laboratory: [address] High Glucose 180 mg/dL 70-99 mg/dL Final [facility]: [address] Low Albumin 2.9 g/dL 3.4-5.1 g/dL Final [facility]: [address] Creatinine 0.63 mg/dL 0.57-1.11 mg/dL Final [facility]: [address] eGFR Non- >60 mL/min/1.73m2 Final [facility]: [address] Total Bilirubin 0.3 mg/dL 0.2-1.2 mg/dL Final [facility]: [address] eGFR - >60 mL/min/1.73m2 Final [facility]: [address] [place] [address], [place] Sodium 143 mEq/L 135-145 mEq/L Final [facility]: [address] Potassium 3.7 mEq/L 3.5-5.1 mEq/L Final [facility]: [address] Chloride 102 mmol/L 98-110 mmol/L Final [facility]: [address] Total Protein 6.5 g/dL 6.1-8.2 g/dL Final [facility]: [address] Calcium 9.6 mg/dL 8.6-10.4 mg/dL Final [facility]: [address] Co2 26.1 mmol/L 20.0-32.0 mmol/L Final [facility]: [address] Anion Gap 15 calc Final [facility]: [address] 12/28/2018 Lipid Panel, Serum Low Hdl 26 mg/dL Final [facility]: [address] High Triglyceride 171 mg/dL 0-150 mg/dL Final [facility]: [address] VLDL (Calculated) 34 mg/dL Final [facility]: [address] cholesterol/HDL Ratio 4.9 mg/dL Final [facility] [facility] [address] non-HDL Cholesterol (Calculated) 102 mg/dL 0-160 mg/dL Final [facility]: [address] Cholesterol 128 mg/dL 0-200 mg/dL Final [facility] Laboratory: [address] LDL (Calculated) 68 mg/dL 0-130 mg/dL Final [facility] Laboratory: [address] 12/28/2018 HbA1C (Hemoglobin a1C), Blood High A1C W/eag 14.0 % 1.0- 5.7 % Final [facility] Laboratory: [address] Average Blood Glucose 355 mg/dL Final [facility]: [address] 12/28/2018 Microalbumin:creatinine Ratio, Urine Microalbumin Random Urine 25 ug/mL Final [facility]: [address] Normal Creatinine Random Urine 77.2 mg/dL 20.0-320.0 mg/dL Final [facility]: [address] High Microalbumin/creatinine (Random Urine) Ratio Calculated 32 mcg/mg creat Final [facility] Laboratory: [address] Allergies Code Code System Name Reaction Severity Status Onset Penicillins Eye Swelling Mild to Moderate Active Problems Name Status Onset Date Source Diabetes Mellitus Active 06/03/2016 Hyperlipidemia Active 06/03/2016 Depressive Disorder Active 07/01/2016 Mixed Anxiety and Depressive Disorder Active 01/07/2017 Shoulder Joint Pain Active 01/07/2017 Procedures Date Name Performed by 06/12/2017 Other Information not available 01/11/2019 MAMMO, Screening, Digital, Bilateral [facility] [address] [place] [address] (Work Place) Vaccine List Vaccine Type pneumococcal polysaccharide PPV23 01/11/20190.5 mL Tdap 01/11/20190.5 mL 0.5 mL Social History Tobacco Smoking Status Never Smoker Past Encounters 01/25/2019 Pruritic Rash; Cough; Benign Essential Hypertension; Type II Diabetes Mellitus Uncontrolled Mendez Jasmine MD: [address] [place] [phone], Ph. 01/14/2019 Pruritic Rash; Cough; Upper Respiratory Infection Mendeztyrone Jasmine MD: [address] [place] [phone], Ph. 01/11/2019 Type II Diabetes Mellitus Uncontrolled; Hyperlipidemia; Benign Essential Hypertension; Allergic Rhinitis; Paronychia of Finger; Immunization; Screening for Malignant Neoplasm of Breast; Screening for Malignant Neoplasm of Cervix; Screening for Malignant Neoplasm of Colon; Low Back Pain Mendez Jasmine MD: [address] [place] [phone], Ph. 12/28/2018 Type II Diabetes Mellitus Uncontrolled; Hyperlipidemia; Low Back Pain; Body Mass Index 30+ - Obesity; Obesity Mendeztyrone Jasmine MD: [address] [place] [phone], Ph. History of Present Illness Note:F/u on htn, HLD, atopic dermatitis and cough.<div>Rash gets better with triamcinolone ointment. Needs a refill.</div>Cough has improved with tessalon capsules.
HTN: not checking BPs at home.<div>DM: glucose readings at home: 80-150s fasting. Postprandial 290s.
</div> Review of Systems:ROS as noted in the HPI Review of Systems Comprehensive General Adult ROS Reported By: Patient Constitutional: Constitutional: no fever Eyes: Eyes: no vision change ENMT: Ears: no ear pain. Nose: no sinus problems. Mouth/Throat: no sore throat Cardiovascular: Cardiovascular: no shortness of breath when walking, no shortness of breath when lying down, no palpitations, no lightheadedness Respiratory: Respiratory: no cough, no wheezing, no [...] EOM: EOMI ENMT: Ears: TMs clear. Nose: nares patent, no sinus tenderness, no nasal discharge. Lips, Teeth, and Gums: no mouth or lip ulcers. Oropharynx: moist mucous membranes, no erythema, no exudates, tonsils not enlarged Neck: Neck: supple, trachea midline. Lymph Nodes: no cervical LAD Lungs: Auscultation: breath sounds normal Cardiovascular: Heart Auscultation: RRR, normal S1, normal S2, no murmurs. Neck vessels: no carotid bruits Musculoskeletal:: Extremities: edema Neurologic: Gait and Station: normal gait Skin: Inspection and palpation: ; erythematous lesions in the legs with scaly skin
--- OUTSIDE RECORDS SUMMARY | 2019-03-30 10:01 | XMS REPORT | Encounter Summary ---
Author Organization Unknown Address [address] [place] [address] Phone [phone] Care Team Providers Care Concrete Foreman Name Role Phone Dr. Mendez Wolf 3 [phone] Mendez Mathis MD 3 [phone] Justen Loyd OD 111 [phone] Reason for Visit skin problem/rash; cough Instructions 1. Pruritic rash triamcinolone acetonide 0.5 % topical ointment 2. Cough losartan 25 mg tablet 3. Upper respiratory infection doxycycline monohydrate 100 mg tablet Discussion Note: None recorded. Patient educational handouts: No information available. Plan of Care Reminders Provider Appointments Est Patient 01/25/2019 11:00AM Mendez Jasmine MD Est Patient 02/08/2019 11:00AM Mendez Jasmine MD Lab None recorded. Referral [...] oral route as needed for 30 days. doxycycline monohydrate 100 mg tablet Take 1 tablet twice a day by oral route as directed for 10 days. fluticasone propionate 50 mcg/actuation nasal spray,suspension [place] 1 spray twice a day by intranasal route as directed for 14 days. Levemir FlexTouch U-100 Insulin 100 unit/mL (3 mL) subcutaneous pen Inject 50 units every day by subcutaneous route as directed for 30 days. lisinopril 5 mg tablet Take 1 tablet every day by oral route as directed for 30 days. losartan 25 mg tablet Take 1 tablet every day by oral route as directed for 30 days. meloxicam 15 mg tablet TAKE ONE TABLET BY MOUTH ONCE A DAY NEEDED WITH FOOD methocarbamol 750 mg tablet Take 1 tablet every 6-8 hours by oral route as needed for 14 days. triamcinolone acetonide 0.5 % topical ointment APPLY A THIN LAYER TO THE AFFECTED AREA(S) BY TOPICAL ROUTE 2 TIMES PER DAY FOR UP TO 2 WEEKS Medications Administered None recorded. Vitals Height Weight BMI Blood Pressure 5 ft 5 in 210.4 lbs 35 kg/m2 (1) 160/86 mm[Hg] (2) 162/86 mm[Hg] Lab Results Date Name Specimen Result Interpretation Description Value Range Status Address 12/28/2018 CMP, Serum or Plasma Alt 13 U/L 0-55 U/L Final [facility] Laboratory: [address] Ast 10 U/L 5-34 U/L Final [facility]: [address] Low Bun 6.9 mg/dL 9.8-25.0 mg/dL Final [facility]: [address] Alk Phos 109 unit/L 40-150 unit/L Final [facility]: [address] High Glucose 180 mg/dL 70-99 mg/dL Final [facility]: [address] Low Albumin 2.9 g/dL 3.4-5.1 g/dL Final [facility]: [address] Creatinine 0.63 mg/dL 0.57-1.11 mg/dL Final [facility]: [address] eGFR Non- >60 mL/min/1.73m2 Final [facility]: [address] Total Bilirubin 0.3 mg/dL 0.2-1.2 mg/dL Final [facility]: [address] eGFR - >60 mL/min/1.73m2 Final [facility]: [address] Sodium 143 mEq/L 135-145 mEq/L Final [facility]: [address] Potassium 3.7 mEq/L 3.5-5.1 mEq/L Final [facility]: [address] Chloride 102 mmol/L 98-110 mmol/L Final [facility]: [address] Total Protein 6.5 g/dL 6.1-8.2 g/dL Final [facility]: [address] Calcium 9.6 mg/dL 8.6-10.4 mg/dL Final [facility]: [address] Co2 26.1 mmol/L 20.0-32.0 mmol/L Final [facility]: [address] Anion Gap 15 calc Final [facility]: [address] 12/28/2018 Lipid Panel, Serum Low Hdl 26 mg/dL Final [facility] [address] High Triglyceride 171 mg/dL 0-150 mg/dL Final [facility]: [address] VLDL (Calculated) 34 mg/dL Final [facility] Laboratory: [address] [place] [address] cholesterol/HDL Ratio 4.9 mg/dL Final [facility]: [address] [place] [address] non-HDL Cholesterol (Calculated) 102 mg/dL 0-160 mg/dL Final [facility]: [address] Cholesterol 128 mg/dL 0-200 mg/dL Final [facility]: [address] LDL (Calculated) 68 mg/dL 0-130 mg/dL Final [facility]: [address] [place] [address] 12/28/2018 HbA1C (Hemoglobin a1C), Blood High A1C W/eag 14.0 % 1.0- 5.7 % Final [facility]: [address] Average Blood Glucose 355 mg/dL Final [facility]: [address] 12/28/2018 Microalbumin:creatinine Ratio, Urine Microalbumin Random Urine 25 ug/mL Final [facility]: [address] [place] [address] Normal Creatinine Random Urine 77.2 mg/dL 20.0-320.0 mg/dL Final [facility]: [address] [place] [address] High Microalbumin/creatinine (Random Urine) Ratio Calculated 32 mcg/mg creat Final [facility]: [address] [place] [address] 12/14/2018 Lab No observation recorded. [facility]: [address], [place] Allergies Code Code System Name Reaction Severity Status Onset Penicillins Eye Swelling Mild to Moderate Active Problems Name Status Onset Date Source Diabetes Mellitus Active 06/03/2016 Hyperlipidemia Active 06/03/2016 Depressive Disorder Active 07/01/2016 Mixed Anxiety and Depressive Disorder Active 01/07/2017 Shoulder Joint Pain Active 01/07/2017 Procedures Date Name Performed by 06/12/2017 Other Information not available 01/11/2019 MAMMO, Screening, Digital, Bilateral [facility] [address] [place] [address] (Work Place) Vaccine List Vaccine Type pneumococcal polysaccharide PPV23 01/11/20190.5 mL Tdap 01/11/20190.5 mL 0.5 mL Social History Tobacco Smoking Status Never Smoker Past Encounters 01/14/2019 Pruritic Rash; Cough; Upper Respiratory Infection Mendez Jasmine MD: [address] [place] [phone], Ph. 01/11/2019 Type II Diabetes Mellitus Uncontrolled; Hyperlipidemia; Benign Essential Hypertension; Allergic Rhinitis; Paronychia of Finger; Immunization; Screening for Malignant Neoplasm of Breast; Screening for Malignant Neoplasm of Cervix; Screening for Malignant Neoplasm of Colon; Low Back Pain Mendez Jasmine MD: [address] [place] [phone], Ph. 12/28/2018 Type II Diabetes Mellitus Uncontrolled; Hyperlipidemia; Low Back Pain; Body Mass Index 30+ - Obesity; Obesity Mendez Jasmine MD: [address] [place] [phone], Ph. 12/14/2018 Chest Pain; Radiology Result Abnormal; Pleural Effusion; Diabetes Mellitus; Body Mass Index 30+ - Obesity; Morbid Obesity; Depressive Disorder; Immunization Refused; Screening for Malignant Neoplasm of Colon Mendez Jasmine MD: [address] [place] [phone], Ph. History of Present Illness Note:Itchy erythematous rash in the legs since this morning. Not known triggers. <div>Productive cough and postnasal drainage since 5 days ago. Denies fever, sore throat, sob, wheezing or chest pain. </div> Review of Systems:ROS as noted in the HPI Review of Systems None recorded. Physical Exam General Adult Exam (male) Reported [...] ENMT: Ears: TMs clear. Nose: no sinus tenderness, nares non-patent, nasal discharge, post nasal drip. Lips, Teeth, and Gums: no mouth or lip ulcers. Oropharynx: moist mucous membranes, no exudates, tonsils not enlarged, erythema Neck: Neck: supple, trachea midline. Lymph Nodes: no cervical LAD Lungs: Auscultation: breath sounds normal Cardiovascular: Heart Auscultation: RRR, normal S1, normal S2, no murmurs. Neck vessels: no carotid bruits Musculoskeletal:: Extremities: edema Neurologic: Gait and Station: normal gait Skin: Inspection and palpation: ; erythematous lesions in the legs with scaly skin
--- OUTSIDE RECORDS SUMMARY | 2019-03-30 10:01 | XMS REPORT | Encounter Summary ---
Author Organization Unknown Address [address] [place] [address] Phone [phone] Care Team Providers Care Senior Accounting Manager Name Role Phone Dr. Mendez Wolf 3 [phone] Justen Evert OD 111 [phone] Reason for Visit Right low back pain; constipation Instructions 1. Constipation Linzess 145 mcg capsule 2. Low back pain meloxicam 15 mg tablet methocarbamol 750 mg tablet 3. Benign essential hypertension losartan 50 mg tablet 4. Type II diabetes mellitus uncontrolled Levemir FlexTouch U-100 Insulin 100 unit/mL (3 mL) subcutaneous pen type 2 diabetes: care instructions HbA1c (hemoglobin A1c), blood 5. Hyperlipidemia high cholesterol: care instructions lipid panel, serum CMP, serum or plasma 6. Allergic rhinitis fluticasone propionate 50 mcg/actuation nasal spray,suspension Discussion Note: None recorded. Plan of Care Reminders Provider Appointments None recorded. Lab Lipid Panel, Serum 03/27/[address] [facility] CMP, Serum or Plasma 03/27/[address] [facility] HbA1C (Hemoglobin a1C), Blood 03/27/[address] [facility] Referral None recorded. Procedures None recorded. Surgeries None recorded. Imaging None recorded. Medications Name Start Date atorvastatin 40 mg tablet Take 1 tablet every day by oral route as directed for 90 days. BD Ultra-Fine Short Pen Needle 31 gauge x 5/16" use once daily bupropion HCl SR 150 mg tablet,12 hr sustained-release TAKE 1 TABLET BY MOUTH EVERY DAY DIRECTED Levemir FlexTouch U-100 Insulin 100 unit/mL (3 mL) subcutaneous pen INJECT 50 UNITS UNDER THE SKIN EVERY DAY DIRECTED Linzess 145 mcg capsule Take 1 capsule every day by oral route as needed for 30 days. losartan 50 mg tablet Take 1 tablet every day by oral route as directed for 90 days. meloxicam 15 mg tablet TAKE ONE TABLET BY MOUTH ONCE A DAY NEEDED WITH FOOD 03/29/2019 methocarbamol 750 mg tablet Take 1 tablet every 8 hours by oral route as needed for 14 days. Prodigy No Coding strips Take 3 strips every day by miscell. route as needed. Prodigy Twist Top Lancet 28 gauge 3 TIMES A DAY triamcinolone acetonide 0.5 % topical ointment APPLY A THIN LAYER TO THE AFFECTED AREA(S) BY TOPICAL ROUTE 2 TIMES PER DAY FOR UP TO 2 WEEKS Medications Administered None recorded. Vitals Height Weight BMI Blood Pressure 5 ft 5 in 205 lbs 34.1 kg/m2 (1) 144/80 mm[Hg] (2) 140/86 mm[Hg] Results Lab Results Date Name Specimen Result Interpretation Description Value Range Status Address 03/27/2019 CMP, Serum or Plasma Alt 10 U/L 0-55 U/L Final [facility]: [address] [place] [address], [place] Ast 9 U/L 5-34 U/L Final [facility]: [address] Low Bun 8.7 mg/dL 9.8-25.0 mg/dL Final [facility]: [address] Alk Phos 107 unit/L 40-150 unit/L Final [facility]: [address] High Glucose 175 mg/dL 70-99 mg/dL Final [facility]: [address] Low Albumin 3.3 g/dL 3.4-5.1 g/dL Final [facility]: [address] Creatinine 0.70 mg/dL 0.57-1.11 mg/dL Final [facility]: [address] eGFR Non- >60 mL/min/1.73m2 Final [facility]: [address] Total Bilirubin 0.3 mg/dL 0.2-1.2 mg/dL Final [facility]: [address] eGFR - >60 mL/min/1.73m2 Final [facility]: [address] [place] [address], [place] Sodium 141 mEq/L 135-145 mEq/L Final [facility]: [address] Potassium 4.4 mEq/L 3.5-5.1 mEq/L Final [facility]: [address] [facility] [place] Chloride 104 mmol/L 98-110 mmol/L Final [facility]: [address] [facility], [place] Total Protein 7.7 g/dL 6.1-8.2 g/dL Final [facility]: [address] [place] Calcium 10.0 mg/dL 8.6-10.4 mg/dL Final [facility]: [address] [facility] [place] Co2 31.8 mmol/L 20.0-32.0 mmol/L Final [facility]: [address] [place] [address] [place] Anion Gap [address] [facility]: [address], [place] 03/27/2019 Lipid Panel, Serum Low Hdl 27 mg/dL Final [facility]: [address] [place] Triglyceride 127 mg/dL 0-150 mg/dL Final [facility]: [address] [facility] [place] VLDL (Calculated) 25 mg/dL Final [facility]: [address] [place] [address] cholesterol/HDL Ratio 5.0 mg/dL Final [facility]: [address] non-HDL Cholesterol (Calculated) 107 mg/dL 0-160 mg/dL Final [facility]: [address] [facility] [place] Cholesterol 134 mg/dL 0-200 mg/dL Final [facility]: [address] LDL (Calculated) 82 mg/dL 0-130 mg/dL Final [facility]: [address] [place] [address], [place] 03/27/2019 HbA1C (Hemoglobin a1C), Blood High A1C W/eag 10.0 % 1.0- 5.7 % Final [facility]: [address] Average Blood Glucose 240 mg/dL Final [facility]: [address] [place] [address], [place] Allergies Code Code System Name Reaction Severity Status Onset Penicillins Eye Swelling Mild to Moderate Active Problems Name Status Onset Date Source Diabetes Mellitus Active 06/03/2016 Hyperlipidemia Active 06/03/2016 Depressive Disorder Active 07/01/2016 Mixed Anxiety and Depressive Disorder Active 01/07/2017 Shoulder Joint Pain Active 01/07/2017 Constipation Active 03/29/2019 Procedures Date Name Performed by 06/12/2017 Other Information not available Vaccine List Vaccine Type pneumococcal polysaccharide PPV23 01/11/20190.5 mL Tdap 01/11/20190.5 mL 0.5 mL Social History Tobacco Smoking Status Never Smoker Past Encounters 03/29/2019 Screening for Malignant Neoplasm of Colon; Influenza Vaccination Declined Mendez Jasmine MD: [address] [place] [address], Ph. 03/27/2019 Constipation; Low Back Pain; Benign Essential Hypertension; Type II Diabetes Mellitus Uncontrolled; Hyperlipidemia; Allergic Rhinitis Mendez Jasmine MD: [address] [place] [address], Ph. History of Present Illness Note:Complaining of difficulty having bowel movements since 1 week ago.<div>Pain in the R side of the lumbar area, constant, triggered by lifting heaving we ight. Intensity:7/10. Radiated to the R leg. Denies numbness, tingling or weakne ss in the legs.</div><div>Glucose readings at home 70s-260s.</div> Review of Systems Comprehensive General Adult ROS Reported By: Patient Constitutional: Constitutional: no fever Eyes: Eyes: no vision change ENMT: Ears: no ear pain. Nose: no sinus problems. Mouth/Throat: no sore throat Cardiovascular: Cardiovascular: no chest pain, no palpitations, no lightheadedness Respiratory: Respiratory: no cough, no wheezing, no shortness of breath Gastrointestinal: Gastrointestinal: no abdominal pain, no nausea, no vomiting, no diarrhea, constipation Musculoskeletal: Musculoskeletal: no swelling in the extremities, muscle aches, back pain Neurologic: Neurologic: no loss of consciousness, no headaches Physical Exam General Adult Exam (male) Reported By: Patient Constitutional: General Appearance: healthy-appearing, obese. Level of Distress: NAD. Ambulation: ambulating normally Psychiatric: Insight: good judgement. Mental Status: active and alert, normal mood, normal affect. Orientation: to time, to place, to person. Memory: recent memory normal, remote memory normal Eyes: Lids and Conjunctivae: non-injected, no discharge ENMT: Ears: TMs clear. Nose: no sinus tenderness. Lips, Teeth, and Gums: no mouth or lip ulcers. Oropharynx: moist mucous membranes Neck: Neck: supple, trachea midline Lungs: Respiratory effort: no dyspnea. Auscultation: breath sounds normal Cardiovascular: Heart Auscultation: RRR, normal S1, normal S2, no murmurs Abdomen: Inspection and Palpation: soft, non-distended, no tenderness, no guarding Musculoskeletal:: Motor Strength and Tone: normal, normal tone. Joints, Bones, and Muscles: normal movement of all extremities. Extremities: no edema Neurologic: Gait and Station: normal gait Back: Thoracolumbar Appearance: ; tenderness with palpation in the lumbar area. Normal ROM. Negative straight leg raising test bilaterally
--- OUTSIDE RECORDS SUMMARY | 2019-03-30 10:01 | XMS REPORT | Encounter Summary ---
Author Organization Unknown Address [address] [place] [address] Phone [phone] Care Team Providers Care Tester Sound Name Role Phone Dr. Mendez Wolf 3 [phone] Mendez Mathis MD 3 [phone] Justen Pitt OD 111 [phone] Reason for Visit Bilateral leg problem; other [...] MD Lab CMP, Serum or Plasma 12/28/2018 [facility] Lipid Panel, Serum 12/28/2018 [facility] HbA1C (Hemoglobin a1C), Blood 12/28/2018 [facility] Microalbumin:creatinine Ratio, Urine 12/28/2018 [facility] Referral None recorded. Procedures [...] 2 mL as needed by intramuscular route. [id number]:10:00 Vitals Height Weight BMI Blood Pressure 5 ft 5 in 197.6 lbs 32.9 kg/m2 130/84 mm[Hg] Lab Results Date Name Specimen Result Interpretation Description Value Range Status Address 12/14/2018 Lab No observation recorded. [facility] [address] [facility] Allergies Code Code System Name Reaction Severity [...] - Obesity; Obesity Mendez Jasmine MD: [address] [place] [address], Ph. 12/14/2018 Chest Pain; Radiology Result Abnormal; Pleural Effusion; Diabetes Mellitus; Body Mass Index 30+ - Obesity; Morbid Obesity; Depressive Disorder; Immunization Refused; Screening for Malignant Neoplasm of Colon Mendez Jasmine MD: [address] [place] [address], Ph. History of Present Illness Note:F/u on [...] enlargement, non-tender Lungs: Respiratory effort: no dyspnea. Auscultation: breath [...]
--- OUTSIDE RECORDS SUMMARY | 2019-03-30 10:01 | XMS REPORT | Encounter Summary ---
Author Organization Unknown Address [address] [place] [address] Phone [phone] Care Team Providers Care Stain Applicator Name Role Phone Dr. Mendez Wolf 3 [phone] Mendez Mathis MD 3 [phone] Justen Evert OD 111 [phone] Reason for Visit Hyperlipidemia; Diabetes mellitus; Right low back pain Instructions 1. Type II diabetes mellitus uncontrolled type 2 diabetes: care instructions 2. Hyperlipidemia high cholesterol: care instructions 3. Benign essential hypertension lisinopril 5 mg tablet 4. Allergic rhinitis fluticasone propionate 50 mcg/actuation nasal spray,suspension cetirizine 10 mg tablet 5. Paronychia of finger mupirocin 2 % topical ointment 6. Immunization Pneumovax 23 25 mcg/0.5 mL injection syringe Adacel (Tdap Adolesn/Adult)(PF)2 Lf-(2.5-5-3-5)-5 Lf/0.5 mL IM syringe 7. Screening for malignant neoplasm of breast MAMMO, screening, digital, bilateral - *Please call the patient and schedule* 8. Screening for malignant neoplasm of cervix gynecology referral - *Please call the patient and make an appointment* PLEASE SEND BACK CONSULT NOTES TO [phone] 9. Screening for malignant neoplasm of colon 10. Low back pain physical therapy referral - *Please call the patient and schedule* Discussion Note: None recorded. Plan of Care Reminders Provider Appointments Est Patient 02/08/2019 11:00AM Mendez Jasmine MD Lab None recorded. Referral Gynecology Referral 01/11/2019 Dolores Figueroa MD Physical Therapy Referral 01/11/2019 [facility] ([place]) Procedures None recorded. Surgeries None recorded. Imaging MAMMO, Screening, Digital, Bilateral 01/11/2019 [facility] Medications Name Start Date atorvastatin 40 mg tablet Take 1 tablet every day by oral route as directed for 90 days. BD Ultra-Fine Short Pen Needle 31 gauge x 5/16" use once daily cetirizine 10 mg tablet Take 1 tablet every day by oral route as needed for 30 days. fluticasone propionate 50 mcg/actuation nasal spray,suspension [place] 1 spray twice a day by intranasal [...] 14 days. mupirocin 2 % topical ointment Apply 1 application every 8 hours by topical route as directed for 10 days. Medications Administered None recorded. Vitals Height Weight BMI Blood Pressure 5 ft 5 in 213 lbs 35.4 kg/m2 (1) 169/89 mm[Hg] (2) 165/89 mm[Hg] Lab Results Date Name Specimen Result Interpretation Description Value Range Status Address 12/28/2018 CMP, Serum or Plasma Alt 13 U/L 0-55 U/L Final [facility]: [address] Ast 10 U/L 5-34 U/L Final [facility]: [address] Low Bun 6.9 mg/dL 9.8-25.0 mg/dL Final [facility]: [address] Alk Phos 109 unit/L 40-150 unit/L Final [facility]: [address] High Glucose 180 mg/dL 70-99 mg/dL Final [facility]: [address] Low Albumin 2.9 g/dL 3.4-5.1 g/dL Final [facility]: [address] Creatinine 0.63 mg/dL 0.57-1.11 mg/dL Final [facility]: [address] eGFR Non- >60 mL/min/1.73m2 Final [facility]: [address] Total Bilirubin 0.3 mg/dL 0.2-1.2 mg/dL Final [facility]: [address] eGFR - >60 mL/min/1.73m2 Final [facility]: [address] [place] [address], [place] Sodium 143 mEq/L 135-145 mEq/L Final [facility]: [address] [place] [address], [place] Potassium 3.7 mEq/L 3.5-5.1 mEq/L Final [facility]: [address] [place] [address], [place] Chloride 102 mmol/L 98-110 mmol/L Final [facility]: [address] Total Protein 6.5 g/dL 6.1-8.2 g/dL Final [facility]: [address] Calcium 9.6 mg/dL 8.6-10.4 mg/dL Final [facility]: [address] Co2 26.1 mmol/L 20.0-32.0 mmol/L Final [facility]: [address] Anion Gap [address] [facility]: [address] [place] [address], [place] 12/28/2018 Lipid Panel, Serum Low Hdl 26 mg/dL Final [facility]: [address] High Triglyceride 171 mg/dL 0-150 mg/dL Final [facility]: [address] VLDL (Calculated) 34 mg/dL Final [facility]: [address] cholesterol/HDL Ratio 4.9 mg/dL Final [facility]: [address] non-HDL Cholesterol (Calculated) 102 mg/dL 0-160 mg/dL Final [facility]: [address] Cholesterol 128 mg/dL 0-200 mg/dL Final [facility]: [address] LDL (Calculated) 68 mg/dL 0-130 mg/dL Final [facility]: [address] [place] [address], [place] 12/28/2018 HbA1C (Hemoglobin a1C), Blood High A1C W/eag 14.0 % 1.0- 5.7 % Final [facility]: [address] [facility] [place] Average Blood Glucose 355 mg/dL Final [facility]: [address] [place] 12/28/2018 Microalbumin:creatinine Ratio, Urine Microalbumin Random Urine 25 ug/mL Final [facility]: [address] [facility] [place] Normal Creatinine Random Urine 77.2 mg/dL 20.0-320.0 mg/dL Final [facility]: [address] [facility] [place] High Microalbumin/creatinine (Random Urine) Ratio Calculated 32 mcg/mg creat Final [facility]: [address] [facility] Lab No observation recorded. [facility]: [address] [place] Allergies Code Code System Name Reaction Severity Status Onset Penicillins Eye Swelling Mild to Moderate Active Problems Name Status Onset Date Source Diabetes Mellitus Active 06/03/2016 Hyperlipidemia Active 06/03/2016 Depressive Disorder Active 07/01/2016 Mixed Anxiety and Depressive Disorder Active 01/07/2017 Shoulder Joint Pain Active 01/07/2017 Procedures Date Name Performed by 06/12/2017 Other Information not available 01/11/2019 MAMMO, Screening, Digital, Bilateral [facility] [address] [facility] [address] [place] [address] (Work [address]) Vaccine List Vaccine Type pneumococcal polysaccharide PPV23 01/11/20190.5 mL Tdap 01/11/20190.5 mL 0.5 mL Social History Tobacco Smoking Status Never Smoker Past Encounters 01/11/2019 Type II Diabetes Mellitus Uncontrolled; Hyperlipidemia; Benign Essential Hypertension; Allergic Rhinitis; Paronychia of Finger; Immunization; Screening for Malignant Neoplasm of Breast; Screening for Malignant Neoplasm of Cervix; Screening for Malignant Neoplasm of Colon; Low Back Pain Mendez Jasmine MD: [address] [place] [address], Ph. 12/28/2018 Type II Diabetes Mellitus Uncontrolled; Hyperlipidemia; Low Back Pain; Body Mass Index 30+ - Obesity; Obesity Mendez Jasmine MD: [address] [place] [address], Ph. 12/14/2018 Chest Pain; Radiology Result Abnormal; Pleural Effusion; Diabetes Mellitus; Body Mass Index 30+ - Obesity; Morbid Obesity; Depressive Disorder; Immunization Refused; Screening for Malignant Neoplasm of Colon Mendez Jasmine MD: [address] [place] [address], Ph. History of Present Illness Note:F/u on dm. Glucose readings at home 65-345 fasting. Postprandial 2 hrs: 200s-300s.<div>No side effects with insulin or atorvastatin. </div> Review of Systems Comprehensive General Adult [...]
--- OUTSIDE RECORDS SUMMARY | 2019-03-30 10:01 | XMS REPORT | Encounter Summary ---
Author Organization Unknown Address [address] [place] [address] Phone [phone] Care Team Providers Care Correctional Manager Name Role Phone Dr. Mendez Wolf 3 [phone] Mendez Mathis MD 3 [phone] Justen Ziebach OD 111 [phone] Reason for Visit Bilateral leg problem; other [...] MD Lab CMP, Serum or Plasma 12/28/2018 [facility] Lipid Panel, Serum 12/28/2018 [facility] HbA1C (Hemoglobin a1C), Blood 12/28/2018 [facility] Microalbumin:creatinine Ratio, Urine 12/28/2018 [facility] Referral None recorded. Procedures None recorded. [...] 2 mL as needed by intramuscular route. [id number]:10:00 Vitals Height Weight BMI Blood Pressure 5 ft 5 in 197.6 lbs 32.9 kg/m2 130/84 mm[Hg] Lab Results Date Name Specimen Result Interpretation Description Value Range Status Address 12/14/2018 Lab No observation recorded. [facility] [address] [facility] Allergies Code Code System Name Reaction Severity [...] - Obesity; Obesity Mendez Jasmine MD: [address] [place] [address], Ph. 12/14/2018 Chest Pain; Radiology Result Abnormal; Pleural Effusion; Diabetes Mellitus; Body Mass Index 30+ - Obesity; Morbid Obesity; Depressive Disorder; Immunization Refused; Screening for Malignant Neoplasm of Colon Mendez Jasmine MD: [address] [place] [address], Ph. History of Present Illness Note:F/u on [...]
--- NOTE | 2019-03-30 11:05 | Diagnostic Imaging Report ---
Exam:Acute abdominal series History:Constipation Comparison: None available Findings:Nonobstructive bowel gas pattern. Air filled loops of colon. Retained stool in the right hemicolon. No free air. Clear chest. Impression: Retained stool in the right hemicolon. No obstruction. Signed by: Dr. Fadi Wise M.D. on 03/30/2019 11:01 AM
[2019-04-04] MEDS ORDERED: LIDOCAINE1 EACH TOP (14:12)
[2019-04-04] MEDS ORDERED: LEVEMIR100 UNIT/1 SQ (14:12)
[2019-04-04] MEDS ORDERED: MELOXICAM15 MG PO (14:12)
[2019-04-04] MEDS ORDERED: TUMS200 MG PO (14:12)
== END 2019-03-30 12:00 | disposition home or self-care (01) ==
LOC: ER 09:58
DX: K59.00 Constipation, unspecified (principal); I10 Essential (primary) hypertension; E11.9 Type 2 diabetes mellitus without complications; E78.5 Hyperlipidemia, unspecified; F32.9 Major depressive disorder, single episode, unspecified; Z82.49 Family history of ischemic heart disease and other diseases of the circulatory system
CPT/HCPCS: 74022; 81025; 99284

== ENCOUNTER → 2019-04-06 | Day surgery (SDC) | payer BC ==
[~2019-04-06] MED LIST changes: +FENTANYL CITRATE/PF 100MCG/2 ML INJ ONE; +HYOSCYAMINE 0.125 MG TAB ONE; +LEVEMIR100 UNIT/1 SQ; +LIDOCAINE1 EACH TOP; +MELOXICAM15 MG PO; +MIDAZOLAM HCL 2 MG/2 ML VIAL ONE; +PROPOFOL IV EMULSION 10 MG/ML 20 ML VIAL ONE; +TUMS200 MG PO
--- OUTSIDE RECORDS SUMMARY | 2019-04-06 14:22 | XMS REPORT | Encounter Summary ---
Author Organization Unknown Address [address] [place] [address] Phone [phone] Care Team Providers Care Crowning Hammer Operator Name Role Phone Dr. Mendez Wolf 3 [phone] Justen Evert OD 111 [phone] Reason for Visit Constipation; abdominal pain; lab follow-up Instructions 1. Low back pain ketorolac 60 mg/2 mL intramuscular solution XR, lumbar spine - PLEASE CALL PATIENT TO SCHEDULE APPT Voltaren 1 % topical gel lidocaine 5 % topical patch tramadol 50 mg tablet 2. Constipation 3. Type II diabetes mellitus uncontrolled type 2 diabetes: care instructions 4. Atopic dermatitis triamcinolone acetonide 0.5 % topical ointment 5. Influenza vaccination declined Discussion Note: None recorded. Plan of Care Reminders Provider Appointments Est Patient 04/05/2019 11:30AM Mendez Jasmine MD Lab None recorded. Referral None recorded. Procedures None recorded. Surgeries None recorded. Imaging XR, Lumbar Spine 03/29/2019 [facility] [place] Medications Name Start Date atorvastatin 40 mg tablet Take 1 tablet every day by oral route as directed for 90 days. BD Ultra-Fine Short Pen Needle 31 gauge x 5/16" use once daily bupropion HCl SR 150 mg tablet,12 hr sustained-release TAKE 1 TABLET BY MOUTH EVERY DAY DIRECTED ketorolac 60 mg/2 mL intramuscular solution Inject 2 mL as needed by intramuscular route. Levemir FlexTouch U-100 Insulin 100 unit/mL (3 mL) subcutaneous pen INJECT 50 UNITS UNDER THE SKIN EVERY DAY DIRECTED lidocaine 5 % topical patch APPLY 1 PATCH BY TRANSDERMAL ROUTE ONCE DAILY (MAY WEAR UP TO 12HOURS.) Linzess 145 mcg capsule Take 1 capsule [...] Lancet 28 gauge 3 TIMES A DAY tramadol 50 mg tablet Take 1 tablet every day by oral route as needed. triamcinolone acetonide 0.5 % topical ointment APPLY A THIN LAYER TO THE AFFECTED AREA(S) BY TOPICAL ROUTE 2 TIMES PER DAY FOR UP TO 2 WEEKS Voltaren 1 % topical gel APPLY 2 GRAMS TO THE AFFECTED AREA(S) BY TOPICAL ROUTE 4 TIMES PER DAY NEEDED Medications Administered Name Date ketorolac 60 mg/2 mL intramuscular solution Inject 2 mL as needed by intramuscular route. [id number]:05:00 Vitals Height Weight BMI Blood Pressure 5 ft 5 in (1) 166/90 mm[Hg] (2) 134/90 mm[Hg] Results Lab Results Date Name Specimen Result Interpretation Description Value Range Status Address 03/27/2019 CMP, Serum or Plasma Alt 10 U/L 0-55 U/L Final [facility] Laboratory: [address] Ast 9 U/L 5-34 U/L Final [facility] Laboratory: [address] Low Bun 8.7 mg/dL 9.8-25.0 mg/dL Final [facility] Laboratory: [address] Alk Phos 107 unit/L 40-150 unit/L Final [facility] Laboratory: [address] High Glucose 175 mg/dL 70-99 mg/dL Final [facility] Laboratory: [address] Low Albumin 3.3 g/dL 3.4-5.1 g/dL Final [facility] Laboratory: [address] Creatinine 0.70 mg/dL 0.57-1.11 mg/dL Final [facility] Laboratory: [address] eGFR Non- >60 mL/min/1.73m2 Final [facility] Laboratory: [address] Total Bilirubin 0.3 mg/dL 0.2-1.2 mg/dL Final [facility] Laboratory: [address] eGFR - >60 mL/min/1.73m2 Final [facility]: [facility] [facility] S[facility] mEq/L 135-145 mEq/L Final [facility] Laboratory: [address] [place] [address], [place] Potassium 4.4 mEq/L 3.5-5.1 mEq/L Final [facility] Laboratory: [address] Chloride 104 mmol/L 98-110 mmol/L Final [facility] Laboratory: [address] [place] [address], [place] Total Protein 7.7 g/dL 6.1-8.2 g/dL Final [facility] Laboratory: [address] Calcium 10.0 mg/dL 8.6-10.4 mg/dL Final [facility] Laboratory: [address] Co2 31.8 mmol/L 20.0-32.0 mmol/L Final [facility] Laboratory: [address] Anion Gap 5 calc Final [facility] Laboratory: [address] 03/27/2019 Lipid Panel, Serum Low Hdl 27 mg/dL Final [facility] Laboratory: [address] Triglyceride 127 mg/dL 0-150 mg/dL Final [facility] Laboratory: [address] VLDL (Calculated) 25 mg/dL Final [facility] Laboratory: [address] cholesterol/HDL Ratio 5.0 mg/dL Final [facility] Laboratory: [address] non-HDL Cholesterol (Calculated) 107 mg/dL 0-160 mg/dL Final [facility] Laboratory: [address] Cholesterol 134 mg/dL 0-200 mg/dL Final [facility] Laboratory: [address] LDL (Calculated) 82 mg/dL 0-130 mg/dL Final [facility] Laboratory: [address] 03/27/2019 HbA1C (Hemoglobin a1C), Blood High A1C W/eag 10.0 % 1.0- 5.7 % Final [facility] Laboratory: [address] Average Blood Glucose 240 mg/dL Final [facility] Laboratory: [address] [facility] [address], [place] Allergies Code Code System Name Reaction Severity Status Onset Penicillins Eye Swelling Mild to Moderate Active Problems Name Status Onset Date Source Diabetes Mellitus Active 06/03/2016 Hyperlipidemia Active 06/03/2016 Depressive Disorder Active 07/01/2016 Mixed Anxiety and Depressive Disorder Active 01/07/2017 Shoulder Joint Pain Active 01/07/2017 Constipation Active 03/29/2019 Procedures Date Name Performed by 06/12/2017 Other Information not available 03/29/2019 XR, Lumbar Spine [facility] [address] [place] [address] (Work [address]) Vaccine List Vaccine Type pneumococcal polysaccharide PPV23 01/11/20190.5 mL Tdap 01/11/20190.5 mL 0.5 mL Social History Tobacco Smoking Status Never Smoker Past Encounters 03/29/2019 Low Back Pain; Constipation; Type II Diabetes Mellitus Uncontrolled; Atopic Dermatitis; Influenza Vaccination Declined Mendez Jasmine MD: [address] [place] [phone], Ph. 03/27/2019 Constipation; Low Back Pain; Benign Essential Hypertension; Type II Diabetes Mellitus Uncontrolled; Hyperlipidemia; Allergic Rhinitis Mendez Jasmine MD: [id number] [place] [address], Ph. History of Present Illness Note:Coming for lab results, f/u on back pain and f/u on constipation.<div> Worsening pain in the lumbar area, constant, triggered by lifting heaving weight . Intensity:10/10. Radiated to the R leg. Denies numbness, tingling or weakness in the legs.</div><div>F/u on constipation. Pt just started linzess this AM at 6: 00 am. She hasn't had any bowel movements yet. </div> Review of Systems Comprehensive General Adult ROS Reported By: Patient Constitutional: Constitutional: no fever Eyes: Eyes: no vision change Cardiovascular: Cardiovascular: no chest pain, no palpitations, [...] Eyes: Lids and Conjunctivae: non-injected, no discharge Neck: Neck: supple, trachea midline Lungs: Respiratory effort: no dyspnea. Auscultation: breath sounds normal Cardiovascular: Heart Auscultation: RRR, normal S1, normal S2, no murmurs Abdomen: Inspection and Palpation: soft, non-distended, no tenderness, no guarding Musculoskeletal:: Motor Strength and Tone: normal, normal tone. Joints, Bones, and Muscles: normal movement of all extremities. Extremities: no edema Neurologic: Gait and Station: normal gait. Sensation: grossly intact. Reflexes: DTRs 2+ bilaterally throughout Back: Thoracolumbar Appearance: ; tenderness with palpation in the lumbar area. Normal ROM. Negative straight leg raising test bilaterally
[2019-04-06 19:06] VITALS: BP 150/65
--- NOTE | 2019-04-07 02:12 | Operative Report ---
DATE OF PROCEDURE: 04/06/2019 SURGEON: Azael Pate MD PROCEDURE: Colonoscopy. INDICATIONS FOR PROCEDURE: Colorectal cancer screening. MEDICATIONS: The patient was done under MAC, please see anesthesiologist's note. PROCEDURE IN DETAIL: With the patient in left lateral decubitus position, flexible fiberoptic Olympus colonoscope was inserted into the rectum with ease and advanced all the way to the cecum. Prep overall was suboptimal to poor with retained stool scattered throughout the colon. Whatever was visualized, the mucosa overlying the cecum, ascending, transverse and descending grossly appeared to be within normal limits. There were no obstructing or constricting lesions. Diverticular disease was noted to involve the distal descending and the sigmoid colon. The rectum grossly appeared to be within normal limits. The scope was then retroflexed into the distal rectum and small internal hemorrhoids were noted, none of which was actively bleeding. The scope was then straightened out, it was subsequently withdrawn, and the patient tolerated procedure well. IMPRESSION: 1. Suboptimal to poor prep. 2. Diverticulosis. 3. Internal hemorrhoids, none actively bleeding. PLAN: Initiate high-fiber, low-fat diet. Initiate high-fiber supplement. The patient will need a repeat colonoscopy after a better prep. Azael Pate MD [facility] [place][id number] cc: Mendez Jasmine MD
== END | disposition home or self-care (01) ==
LOC: OR 14:19
PROVIDERS: ATTEND Internal Medicine Gastroenterology
DX: K59.00 Constipation, unspecified (principal); I10 Essential (primary) hypertension; E11.9 Type 2 diabetes mellitus without complications; K57.30 Diverticulosis of large intestine without perforation or abscess without bleeding; K64.8 Other hemorrhoids; Z53.8 Procedure and treatment not carried out for other reasons; Z01.810 Encounter for preprocedural cardiovascular examination
CPT/HCPCS: 36415; 45378; 82948; 93005; J2250; J2704; J3010

== ENCOUNTER 2020-09-04 17:49 | Emergency (ER) | payer BC ==
[~2020-09-04] VITALS: Ht 165.1 cm; Wt 93.0 kg
[~2020-09-04 17:49] MED LIST changes: -FENTANYL CITRATE/PF 100MCG/2 ML INJ ONE; -HYOSCYAMINE 0.125 MG TAB ONE; -MIDAZOLAM HCL 2 MG/2 ML VIAL ONE; -PROPOFOL IV EMULSION 10 MG/ML 20 ML VIAL ONE
[2020-09-04] MEDS ORDERED: ONDANSETRON HCL INJ 2MG/ML 2ML 2 MG/ML VIAL IV STA (19:15)
[2020-09-04] MEDS ORDERED: MORPHINE SULFATE INJ 4 MG/ML INJ 1ML IV ONE (19:15)
[2020-09-04 19:38] LABS: BASOPHILS % 0.3 % (0.0-1.0); EOSINOPHILS % 0.5 % (0.0-6.0); HEMATOCRIT 41.4 % (34.2-44.1); HEMOGLOBIN 13.1 g/dL (12.0-16.0); LYMPHOCYTES # (AUTO) 1.6 (1.0-3.2); LYMPHOCYTES % 18.5 % (18.0-39.1); MEAN CORPUSCULAR HEMOGLOBIN 28.7 pg (28-32); MEAN CORPUSCULAR HGB CONC 31.6 g/dL (31-35); MEAN CORPUSCULAR VOLUME 90.6 fL (81-99); MONOCYTES # (AUTO) 0.6 (0.2-0.8); MONOCYTES % 6.4 % (4.4-11.3); NEUTROPHILS # (AUTO) 6.5 (2.1-6.9); PLATELET COUNT 278 x10e3/uL (140-360); RED BLOOD COUNT 4.57 x10e6/uL (3.6-5.1); RED CELL DISTRIBUTION WIDTH 13.5 % (11.7-14.4)
[2020-09-04 20:54] LABS: ALBUMIN 3.7 g/dL (3.5-5.0); CALCIUM 9.6 mg/dL (8.4-10.2); CREATININE, SERUM 0.99 mg/dL (0.57-1.11)
[2020-09-04 21:00] LABS: CREATINE KINASE MB 0.6 ng/mL (0-5.0)
[2020-09-04] MEDS ORDERED: IOPAMIDOL 370 MG/ML 200 ML INFUS..BTL INJ ONE (21:12)
[2020-09-04] MEDS ORDERED: SODIUM CHLORIDE 0.9% 50ML 50 ML ONE (21:12)
[2020-09-04] MEDS ORDERED: LIDOCAINE 4% PATCH TP ONE (21:45)
[2020-09-04] MEDS ORDERED: KETOROLAC TROMETHAMINE 30 MG/ML VIAL IV STA (22:26)
[2020-09-04] MEDS ORDERED: METHYLPREDNISOLONE SOD SUCC 125 MG/2ML VIAL IV ONE (22:30)
[2020-09-04] MEDS ORDERED: VALIUM2 MG PO (23:05)
[2020-09-04] MEDS ORDERED: KETOROLAC TROME10 MG PO ×2 (23:05→23:07)
[2020-09-04] MEDS ORDERED: VALIUM5 MG PO (23:07)
[2020-09-04] MEDS ORDERED: LIDOPATCH1 EACH TOP (23:07)
[2020-09-04 23:32] VITALS: BP 144/85
== END 2020-09-04 23:34 | disposition home or self-care (01) ==
LOC: ER 21:13
DX: M94.0 Chondrocostal junction syndrome [Tietze] (principal); E11.65 Type 2 diabetes mellitus with hyperglycemia; I10 Essential (primary) hypertension; E78.5 Hyperlipidemia, unspecified; F32.9 Major depressive disorder, single episode, unspecified
CPT/HCPCS: 36415; 71260; 80053; 82550; 82553; 84484; 85025; 99284; J1885; J2270; J2405; J2930; Q9967

== ENCOUNTER 2020-09-13 16:02 | Observation (INO) | payer BC ==
[~2020-09-13] VITALS: Ht 165.1 cm; Wt 114.4 kg
[~2020-09-13 16:02] MED LIST changes: +KETOROLAC TROME10 MG PO; +LIDOPATCH1 EACH TOP; +VALIUM2 MG PO; +VALIUM5 MG PO
[2020-09-13] MEDS ORDERED: DIATRIZOATE MEGL/DIATRIZOA SOD 30 ML BTL PO ONE (18:08)
[2020-09-13 18:16] LABS: BASOPHILS % 0.3 % (0.0-1.0); EOSINOPHILS % 0.2 % (0.0-6.0); HEMATOCRIT 39.8 % (34.2-44.1); HEMOGLOBIN 12.3 g/dL (12.0-16.0); LYMPHOCYTES # (AUTO) 1.7 (1.0-3.2); LYMPHOCYTES % 17.1 % (18.0-39.1); MEAN CORPUSCULAR HEMOGLOBIN 28.5 pg (28-32); MEAN CORPUSCULAR HGB CONC 30.9 g/dL (31-35); MEAN CORPUSCULAR VOLUME 92.3 fL (81-99); MONOCYTES # (AUTO) 0.6 (0.2-0.8); MONOCYTES % 5.9 % (4.4-11.3); NEUTROPHILS # (AUTO) 7.7 (2.1-6.9); NEUTROPHILS % 76.1 % (38.7-80.0); PLATELET COUNT 424 x10e3/uL (140-360); RED BLOOD COUNT 4.31 x10e6/uL (3.6-5.1)
[2020-09-13 18:38] LABS: ALBUMIN 3.8 g/dL (3.5-5.0); ALBUMIN/GLOBULIN RATIO 0.9 (0.8-2.0); ANION GAP 16.1 mmol/L (8-16); CREATININE, SERUM 1.13 mg/dL (0.57-1.11); POTASSIUM 4.1 mmol/L (3.5-5.1)
[2020-09-13] MEDS ORDERED: SODIUM CHLORIDE 0.9% 500ML 500 ML IV ONE (19:15)
[2020-09-13 21:00] VITALS: BP 145/51
[2020-09-13] MEDS ORDERED: DEXTROSE 50% SYRINGE 50 ML IV PRN (21:00)
[2020-09-13] MEDS ORDERED: NEURONTIN300 MG PO (21:24)
[2020-09-13] MEDS ORDERED: WELLBUTRIN SR100 MG PO (21:24)
[2020-09-13] MEDS ORDERED: OSTEO BI-FLEX1 EAC2 PO (21:24)
[2020-09-13] MEDS ORDERED: GLIPIZIDE5 MG PO (21:24)
[2020-09-13] MEDS ORDERED: DOXYCYCLINE HY100 MG PO (21:24)
[2020-09-13] MEDS ORDERED: CRANBERRY400 MG PO (21:24)
[2020-09-13] MEDS ORDERED: LISINOPRIL10 MG PO (21:24)
[2020-09-13] MEDS ORDERED: MULTIPLE VITAM1 EACH PO (21:24)
[2020-09-13 21:30] VITALS: BP 145/51
[2020-09-13] MEDS ORDERED: ACETAMINOPHEN 325 MG TAB PO PRN (22:15)
[2020-09-13] MEDS ORDERED: HYDRALAZINE HCL 20 MG/ML VIAL IV PRN (22:15)
[2020-09-13] MEDS ORDERED: ONDANSETRON HCL INJ 2MG/ML 2ML 2 MG/ML VIAL IV PRN (22:15)
[2020-09-13] MEDS ORDERED: LIDOCAINE 4% PATCH TP PRN (22:15)
[2020-09-13] MEDS ORDERED: DIAZEPAM 5 MG TAB PO PRN (22:15)
[2020-09-13] MEDS: INSULIN REGULAR, HUMAN 100 UNIT/1 ML 3ML VIAL SQ SCH (22:20)
[2020-09-13] MEDS: SODIUM CHLORIDE 0.9% 1000ML 1,000 ML IV SCH (22:30)
[2020-09-14 00:20] VITALS: BP 134/61
[2020-09-14 04:00] VITALS: BP 128/57
[2020-09-14 05:17] LABS: BASOPHILS % 0.3 % (0.0-1.0); EOSINOPHILS % 0.4 % (0.0-6.0); HEMATOCRIT 33.3 % (34.2-44.1); HEMOGLOBIN 10.5 g/dL (12.0-16.0); LYMPHOCYTES # (AUTO) 1.5 (1.0-3.2); LYMPHOCYTES % 18.8 % (18.0-39.1); MEAN CORPUSCULAR HEMOGLOBIN 28.4 pg (28-32); MEAN CORPUSCULAR HGB CONC 31.5 g/dL (31-35); MONOCYTES # (AUTO) 0.6 (0.2-0.8); MONOCYTES % 7.1 % (4.4-11.3); NEUTROPHILS # (AUTO) 5.8 (2.1-6.9); PLATELET COUNT 350 x10e3/uL (140-360)
[2020-09-14 05:51] LABS: ALANINE AMINOTRANSFERASE 12 IU/L (0-55); ALBUMIN 2.9 g/dL (3.5-5.0); ALBUMIN/GLOBULIN RATIO 0.8 (0.8-2.0); ALKALINE PHOSPHATASE 97 IU/L (40-150); BLOOD UREA NITROGEN 10 mg/dL (7-26); BUN/CREATININE RATIO 13 (6-25); CALCIUM 8.8 mg/dL (8.4-10.2); CARBON DIOXIDE 26 mmol/L (22-29); CHLORIDE 103 mmol/L (98-107); CREATININE, SERUM 0.77 mg/dL (0.57-1.11); EST GLOMERULAR FILTRATION RATE > 60 ML/MIN (60-); GLUCOSE 216 mg/dL (74-118); SODIUM 138 mmol/L (136-145)
[2020-09-14 07:30] VITALS: BP 131/53
[2020-09-14 07:45] VITALS: BP 131/53
[2020-09-14] MEDS: SODIUM CHLORIDE 0.9% 1000ML 1,000 ML IV SCH (08:27)
[2020-09-14] MEDS: INSULIN REGULAR, HUMAN 100 UNIT/1 ML 3ML VIAL SQ SCH ×3 (09:26→17:27)
[2020-09-14 11:20] VITALS: BP 117/54
[2020-09-14] MEDS ORDERED: METHOCARBAMOL 750 MG TAB PO PRN (14:00)
[2020-09-14] MEDS ORDERED: GABAPENTIN 300 MG CAP PO SCH (15:00)
[2020-09-14 15:29] VITALS: BP 144/54
[2020-09-15] MEDS ORDERED: GLIPIZIDE 5 MG TAB PO SCH (07:30)
[2020-09-15] MEDS ORDERED: BUPROPION HCL 100 MG TAB PO SCH (09:00)
[2020-09-15] MEDS ORDERED: LISINOPRIL 10 MG TAB PO SCH (09:00)
== END 2020-09-14 18:20 | disposition home or self-care (01) ==
LOC: ER 17:00 → ERHOLD 17:45 → INTOOBSV 17:45 → MED/SURG 20:48
PROVIDERS: ADMIT Internal Medicine; ATTEND Internal Medicine
DX: K56.7 Ileus, unspecified (principal); I10 Essential (primary) hypertension; E78.00 Pure hypercholesterolemia, unspecified; E11.9 Type 2 diabetes mellitus without complications; G89.29 Other chronic pain; Z20.822 Contact with and (suspected) exposure to COVID-19; N17.9 Acute kidney failure, unspecified
CPT/HCPCS: 36415 ×2; 74018; 74019; 74177; 80053 ×2; 82948 ×2; 85025 ×2; 99284; G0378 ×2; J1817; J7030 ×2; J7040; U0002